=== PATIENT | male | born 1990 ===

== ENCOUNTER 2017-07-11 22:16 | Emergency (ER) | payer MEDICAID ==
[~2017-07-11] VITALS: Ht 170.2 cm; Wt 79.5 kg
[2017-07-11 22:25] VITALS: BP 151/110
== END 2017-07-11 22:31 | disposition left against medical advice (07) ==
LOC: ER 22:20
DX: R41.82 Altered mental status, unspecified (principal); R07.9 Chest pain, unspecified; R06.00 Dyspnea, unspecified
CPT/HCPCS: 93005; 99284